=== PATIENT | male | born 1970 | race Caucasian/White ===

== ENCOUNTER 2017-07-08 10:03 | Emergency (ER) | payer SELFPAY, OTHER ==
[2017-07-08] MEDS: HYDROcodone/APAP 10/325 1 TAB TABLET PO (10:59)
[2017-07-08 11:13] LABS: INFLUENZA A PATIENT NEGATIVE (NEGATIVE); INFLUENZA B PATIENT NEGATIVE (NEGATIVE); OBC FLU VALID
== END 2017-07-08 11:49 | disposition home or self-care (01) ==
LOC: ER 10:03
DX: G89.29 Other chronic pain (principal); M54.89 Other dorsalgia; R05 Cough; M79.1 Myalgia; R09.81 Nasal congestion; F31.9 Bipolar disorder, unspecified; E78.00 Pure hypercholesterolemia, unspecified; I10 Essential (primary) hypertension; Z90.49 Acquired absence of other specified parts of digestive tract
CPT/HCPCS: 87804; 87804-59; 99284